=== PATIENT | male | born 1995 | race African-American/Black ===

== ENCOUNTER 2016-11-13 12:35 | Inpatient (IN) | payer MEDICAID, OTHER ==
[~2016-11-13] VITALS: Ht 185.4 cm; Wt 67.7 kg
[2016-11-13 13:41] LABS: BASOPHILS % (AUTO) 0.7 % (0.0-2.0); EOSINOPHILS % (AUTO) 2.5 % (1.0-6.0); HEMATOCRIT 46.5 % (41-53); LYMPHOCYTES # (AUTO) 1.9 K/uL (1.0-4.8); LYMPHOCYTES % (AUTO) 42.9 % (22.0-44.0); MEAN CORPUSCULAR HEMOGLOBIN 31.2 pg (26.0-34.0); MEAN CORPUSCULAR HGB CONC 32.3 G/dL (31.0-37.0); MEAN CORPUSCULAR VOLUME 97 fL (80-100); MONOCYTES # (AUTO) 0.5 K/uL (0.1-1.0); MONOCYTES % (AUTO) 11.3 % (2.0-9.0); NEUTROPHILS # (AUTO) 1.9 K/uL (1.8-7.7); NEUTROPHILS % (AUTO) 42.6 % (40.0-70.0); PLATELET COUNT (AUTO) 193 K/uL (150-450); RED BLOOD CELL COUNT(AUTO) 4.81 MIL/uL (4.50-5.90); RED CELL DISTRIBUTION WIDTH 12.8 % (11.5-14.5); WHITE BLOOD COUNT (AUTO) 4.4 K/uL (4.5-11.0)
[2016-11-13 14:04] LABS: ANION GAP 8 mmol/L (8-16); CALCIUM, TOTAL 8.9 mg/dL (8.8-10.5); CARBON DIOXIDE 28 mmol/L (22-29); CHLORIDE 104 mmol/L (98-107); CREATININE 1.11 mg/dL (0.60-1.30); GLOMERULAR FILTR. RATE CALC > 60 mL/min (>60); POTASSIUM 3.9 mmol/L (3.5-5.1); SODIUM SERUM 140 mmol/L (136-145); UREA NITROGEN, BLOOD 11 mg/dL (7-18)
[2016-11-13 14:08] LABS: ALANINE AMINOTRANSFERASE 23 U/L (12-78); ALBUMIN 3.7 g/dL (3.4-5.0); ASPARTATE AMINOTRANSFERASE 23 U/L (15-37); BILIRUBIN,TOTAL 1.3 mg/dL (0.1-1.0); TOTAL PROTEIN, SERUM 7.5 g/dL (6.4-8.2)
[2016-11-13] MEDS ORDERED: LORazepam 2 MG TABLET PO PRN (14:30)
[2016-11-13] MEDS ORDERED: HALOPERIDOL 5 MG TABLET PO PRN (14:30)
[2016-11-13] MEDS ORDERED: ZOLPIDEM TARTRATE 10 MG TABLET PO PRN (14:30)
[2016-11-13] MEDS ORDERED: LORazepam 2 MG TABLET PO ONE (15:30)
[2016-11-13] MEDS ORDERED: HALOPERIDOL 5 MG TABLET PO ONE (15:30)
[2016-11-13 17:15] VITALS: BP 127/77
[2016-11-14 02:27] VITALS: BP 116/75
[2016-11-14 08:00] VITALS: BP 115/57
[2016-11-14] MEDS: RisperiDONE 2 MG TABLET PO SCH ×2 (10:29→17:59)
[2016-11-14] MEDS: DIVALPROEX SODIUM 500 MG ER TABLET PO SCH ×2 (10:29→17:59)
[2016-11-14 19:30] VITALS: BP 104/60
[2016-11-15 02:50] VITALS: BP 110/65
[2016-11-15] MEDS: RisperiDONE 2 MG TABLET PO SCH ×2 (09:07→16:19)
[2016-11-15] MEDS: DIVALPROEX SODIUM 500 MG ER TABLET PO SCH ×2 (09:07→16:19)
[2016-11-15 10:25] VITALS: BP 130/73
[2016-11-15] MEDS ORDERED: LOPERAMIDE HCL 2 MG CAPSULE PO PRN (18:30)
[2016-11-15] MEDS ORDERED: ACETAMINOPHEN 325 MG TABLET PO PRN (18:30)
[2016-11-15] MEDS ORDERED: BACITRACIN 28.4 GM OINTMENT TP PRN (18:30)
[2016-11-15] MEDS ORDERED: IBUPROFEN 600 MG TABLET PO PRN (18:30)
[2016-11-15] MEDS ORDERED: MAGNESIUM HYDROXIDE SUSPENSION 30 ML UDCUP PO PRN (18:30)
[2016-11-15] MEDS ORDERED: CloNIDine HCL 0.1 MG TABLET PO PRN (18:30)
[2016-11-15] MEDS ORDERED: ALBUTEROL SULFATE HFA 90 MCG/PUFF 8 GM INHALER IH PRN (18:30)
[2016-11-15] MEDS ORDERED: ONDANSETRON HCL 4 MG TABLET PO PRN (18:30)
[2016-11-15] MEDS ORDERED: PETROLATUM,WHITE 71 GM JELLY TP PRN (18:30)
[2016-11-15] MEDS ORDERED: MAG HYDROX/AL HYDROX/SIMETH ES 30 ML SUSPENSION UDCUP PO PRN (18:30)
[2016-11-15] MEDS ORDERED: BENZOCAINE/MENTHOL LOZENGE [8 LOZENGES/PACKET] MM PRN (18:45)
[2016-11-15 19:41] VITALS: BP 125/68
[2016-11-16 06:41] VITALS: BP 120/68
[2016-11-16 08:04] VITALS: BP 109/67
[2016-11-16] MEDS: DIVALPROEX SODIUM 500 MG ER TABLET PO SCH (08:29)
[2016-11-16] MEDS: RisperiDONE 2 MG TABLET PO SCH (08:29)
[2016-11-16] MEDS ORDERED: DOCUSATE SODIUM 100 MG CAPSULE PO SCH (09:00)
[2016-11-16] MEDS ORDERED: OMEPRAZOLE 20 MG CAPSULE PO SCH (09:00)
[2016-11-16] MEDS ORDERED: DSS100 PO (10:03)
[2016-11-16] MEDS ORDERED: DIVA500T52 PO (10:03)
[2016-11-16] MEDS ORDERED: OMEP20 PO (10:04)
[2016-11-16] MEDS ORDERED: RISP2 PO (10:04)
[2016-11-16 14:01] LABS: CHOL/HDL RATIO 2.6 (4.2-7.3); THYROID STIMULATING HORMONE 1.47 uIU/mL (0.36-3.74)
== END 2016-11-16 13:05 | disposition home or self-care (01) | DRG 750 ==
LOC: EMS 12:38 → EEVIPCON 12:38 → 3EI 14:59
PROVIDERS: ADMIT Psychiatry & Neurology Child & Adolescent Psychiatry; ATTEND Psychiatry & Neurology Child & Adolescent Psychiatry
DX: F25.1 Schizoaffective disorder, depressive type (principal); R45.851 Suicidal ideations; Z91.14 Patient's other noncompliance with medication regimen; F41.9 Anxiety disorder, unspecified; F12.90 Cannabis use, unspecified, uncomplicated; G47.00 Insomnia, unspecified; K59.00 Constipation, unspecified; Z71.51 Drug abuse counseling and surveillance of drug abuser
CPT/HCPCS: 82306; 84443; 99285; G0480